=== PATIENT | male | born 1960 ===

== ENCOUNTER 2024-12-03 10:50 | Outpatient (CLI) | payer OTHER | END 2024-12-03 10:52 | disposition home or self-care (01) | LOC: TOM 10:50 | DX: N42.9 Disorder of prostate, unspecified (principal) ==

== ENCOUNTER 2024-12-24 05:00 | Day surgery (SDC) | payer OTHER ==
[2024-12-19 08:01] LABS: BASO % 0.3 % (0.1-1.2); EOS # 0.04 (0.04-0.54); EOS % 1.2 % (0.7-7.0); LYMPH # 1.38 (1.18-3.74); LYMPH % 42.9 % (19.3-53.1); MEAN PLATELET VOLUME 11.60 fl (9.4-12.4); MONO # 0.25 (0.24-0.82); MONO % 7.8 % (4.7-12.5); NEUT # 1.53 (1.56-6.13); NEUT % 47.5 % (34.0-71.1); RED CELL DISTRIBUTION WIDTH 14.0 % (11.6-14.4)
[2024-12-19 08:09] LABS: URINE APPEARANCE Clear; URINE BILIRRUBIN Negative (NEGATIVE); URINE BLOOD Negative; URINE COLOR Yellow; URINE KETONE Trace (NEGATIVE); URINE LEUKOCYTE Negative; URINE NITRATE Negative; URINE PROTEIN Negative (NEGATIVE); URINE UROBILINOGEN 0.2 E.U./dl
[2024-12-19 08:16] LABS: URINE BACTERIA 3.6 uL (0.0-1933); URINE CAST 0.00 uL (0.0-1.40); URINE EPITHELIAL CELLS 1.0 uL (0.0-38.8); URINE GLUCOSE >=1000 MG/DL (NEGATIVE); URINE RBC 0.8 uL (0.0-20.8); URINE WBC 0.9 uL (0.0-23.2)
[2024-12-19 08:27] LABS: ALT/SGPT 28.0 U/L (12-78); AST/SGOT 18.0 U/L (15-37); BILIRUBIN TOTAL 0.62 mg/dL (0.3-1.2); BUN CREA RATIO 19.0 (7.0-25.0); CREATININE SERUM 0.89 mg/dL (0.70-1.30); GFR 86.06; GLOBULINA 3.1 G/DL (2.4-3.5); GLUCOSE FASTING 93.0 mg/dL (65-100); OSMOLALITY SERUM 284.0 MOSM/KG (275-295)
[2024-12-19 08:42] LABS: INR 1.04
[2024-12-19 08:55] VITALS: BP 113/76
[~2024-12-24] VITALS: Ht 185.4 cm; Wt 121.1 kg
[~2024-12-24 05:00] MED LIST: ACARBOSE100 MG; FOLIC ACID; GABAPENTIN 800MG; GLUCOTROL 10 MG; HUMULIN N; HUMULIN R; JARDIANCE10 MG; LORAZEPAN; LOTENSIN40 MG; NORTRIPTYLINE H50 MG; PREGABALIN150 MG; TEMAZEPAM; ZOCOR40 MG; [UNRECOGNIZED DRUG - OTHER]
[2024-12-24] MEDS ORDERED: SUGAMMADEX SODIUM 200 MG/2 ML VIAL IV ONE (11:45)
[2024-12-24] MEDS ORDERED: CEFAZOLIN SODIUM 1,000 MG VIAL IV ONE (11:45)
[2024-12-24] MEDS ORDERED: MORPHINE SULFATE 4 MG/ML VIAL IV ONE (13:25)
== END 2024-12-24 16:10 | disposition home or self-care (01) ==
LOC: CIR.AMB 05:00
PROVIDERS: ATTEND Surgery
DX: K42.0 Umbilical hernia with obstruction, without gangrene (principal); Z88.6 Allergy status to analgesic agent; Z88.8 Allergy status to other drugs, medicaments and biological substances
CPT/HCPCS: 49594; C1781